=== PATIENT | female | born 1960 | race American Indian/Alaskan Native ===

== ENCOUNTER → 2019-05-06 | Emergency (ER) | payer OTHER ==
--- NOTE | 2019-05-06 17:41 | Emergency Department Report ---
Chief Complaint: Abdominal Pain Stated Complaint: DRUNK BLEACH Time Seen by Provider: 05/06/19 17:36 - HPI History of Present Illness: This is a 58-year-old female nontoxic, well in appearance with no signs of distress presents to the ED because she drank about 0.5 ml of bleech accidentally. Patient stated this happened 3 days ago but wanted to get checked out. Patient stated she accidentally drank it mistaked it for water bottle at night. Patient denies any symptoms. Stated her job instructed patient to come to the ED for a check up. Denies any sore throat, abdominal pain, or pelvic pain. Patient stated she is asymptotic. Patient denies any urinary symptoms. Patient denies any fever, chills, headache, nausea, vomiting, chest pain or shortness of breathe. denies any symptoms or complaints. Denies any SI/HI. Denies any psych. Denies any allergies. - Exam Physical Exam: no symptoms. no sore throat. no abdominal pain. no pelvic pain. normal exam. MSE screening note: Focused history and physical exam performed. Due to findings the following was ordered: ED Medical Decision Making - Medical Decision Making [employer] has been called and stated that there is nothing to do since it happened 3 days ago and patient is no symptoms. Patient was instructed to Follow-up with a primary care doctor in 3-5 days or if symptoms worsen and continue return to emergency room as soon as possible. At time of discharge, the patient does not seem toxic or ill in appearance. No acute signs of distress noted. Patient agrees to discharge treatment plan of care. No further questions noted by the patient. ED Disposition for MSE Clinical Impression: Accidental exposure to bleach Disposition: DC-01 TO HOME OR SELFCARE Is pt being admited?: No Does the pt Need Aspirin: No Condition: Stable Additional Instructions: Follow-up with a primary care doctor in 3-5 days or if symptoms worsen and continue return to the emergency department as soon as possible. Referrals: PRIMARY CAREMD [Referring] - 3-5 Days CAREN MCKINNEY MD [Staff Physician] - 3-5 Days [facility] [Outside] - 3-5 Days [facility] [Outside] - 3-5 Days Forms: Work/School Release Form(ED)
[2019-05-06 17:44] VITALS: BP 160/94
== END | disposition home or self-care (01) ==
LOC: ED 16:57
DX: T54.91XA Toxic effect of unspecified corrosive substance, accidental (unintentional), initial encounter (principal); Y92.89 Other specified places as the place of occurrence of the external cause
CPT/HCPCS: 99281